=== PATIENT | male | born 1965 | race Caucasian/White ===

== ENCOUNTER 2020-03-31 20:36 | Emergency (ER) | payer MEDICAID ==
--- NOTE | 2020-03-31 21:15 | ER Document Report ---
ED Medical Screen (RME) - General Stated Complaint: GALLBLADDER ISSUES WORSENING Time Seen by Provider: 03/31/20 21:09 Primary Care Provider: ES PEDERSEN [Primary Care Provider] - Follow up as needed Mode of Arrival: Wheelchair Information source: Patient Notes: HPI; 54-year-old male history of [place] with cardiac arrest and gallbladder disease presents to the emergency room complaining of worsening right upper quadrant pain with nausea, vomiting, diarrhea, body aches, and midsternal chest pain for the past 3 days. States he was seen at [facility] in August for his gallbladder and had a stent put in for 3 weeks was never scheduled for surgery secondary to Covid. Describes a midsternal chest pain as a burning sensation. Has not taken anything for his symptoms. 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 PE: Alert and oriented x3. Lungs: Clear to auscultation without rales, rhonchi, wheezes. Heart: Regular rate rhythm without murmurs, rubs, gallops. I have greeted and performed a rapid initial assessment of this patient. A comprehensive ED assessment and evaluation of the patient, analysis of test results and completion of the medical decision making process will be conducted by additional ED providers. I have specifically instructed the patient or family members with the patient to immediately return to any nursing staff should anything change in the patient's condition or with their chief complaint. TRAVEL OUTSIDE OF THE [place] IN LAST 30 DAYS: No Doctor's Discharge - Discharge Referrals: ES PEDERSEN [Primary Care Provider] - Follow up as needed
[2020-03-31 22:52] LABS: ABSOLUTE EOSINOPHILS # (AUTO) 0.2 10^3/uL (0.0-0.6); ABSOLUTE LYMPHOCYTES (AUTO) 2.8 10^3/uL (0.5-4.7); ABSOLUTE MONOCYTES (AUTO) 1.1 10^3/uL (0.1-1.4); ABSOLUTE NEUT (AUTO) 6.7 10^3/uL (1.7-8.2); BASOPHILS % (AUTO) 0.3 % (0-2); EOSINOPHILS % (AUTO) 1.7 % (0-6); HEMATOCRIT 40.4 % (37.9-51.0); HEMOGLOBIN 14.3 g/dL (13.5-17.0); LYMPHOCYTES % (AUTO) 25.8 % (13-45); MEAN CORPUSCULAR HEMOGLOBIN 34.1 pg (27.0-33.4); MEAN CORPUSCULAR HGB CONC 35.4 g/dL (32.0-36.0); MEAN CORPUSCULAR VOLUME 96 fl (80-97); MONOCYTES % (AUTO) 10.4 % (3-13); PLATELET COUNT 280 10^3/uL (150-450); RED CELL DISTRIBUTION WIDTH 13.4 % (11.5-14.0); SEGMENTED NEUTROPHILS % (AUTO) 61.8 % (42-78); TOTAL CELLS COUNTED % (AUTO) 100 %; WHITE BLOOD COUNT 10.8 10^3/uL (4.0-10.5)
--- NOTE | 2020-03-31 22:55 | RADIOLOGY REPORT (SQ) ---
EXAM DESCRIPTION: XR CHEST 1 VIEW COMPLETED DATE/TME: 03/31/2020 22:08 CLINICAL HISTORY: 54 years, Male, chest pain EXAM DESCRIPTION: CHEST SINGLE VIEW CLINICAL HISTORY: chest pain COMPARISON: None. FINDINGS: Single view of the chest is submitted. Cardiac silhouette is normal. No focal parenchymal or pleural disease. There is no significant pulmonary vascular engorgement. IMPRESSION: No evidence of acute cardiopulmonary disease.
[2020-03-31 23:12] LABS: APPEARANCE,URINE CLEAR; BILIRUBIN,URINE NEGATIVE (NEGATIVE); COLOR,URINE YELLOW; GLUCOSE, URINE NEGATIVE (NEGATIVE); KETONES,URINE NEGATIVE (NEGATIVE); LEUKOCYTE ESTERASE,URINE NEGATIVE (NEGATIVE); NITRITE,URINE NEGATIVE (NEGATIVE); PROTEIN,URINE NEGATIVE (NEGATIVE); URINE SPECIFIC GRAVITY 1.024; UROBILINOGEN,URINE NEGATIVE mg/dL (<2.0)
[2020-03-31 23:13] LABS: ALBUMIN 4.6 g/dL (3.5-5.0); ALKALINE PHOSPHATASE 67 U/L (38-126); AMYLASE 68 U/L (30-110); ANION GAP 9 (5-19); ASPARTATE AMINO TRANSFERASE 27 U/L (17-59); BILIRUBIN,DIRECT 0.1 mg/dL (0.0-0.4); BILIRUBIN,TOTAL 0.4 mg/dL (0.2-1.3); BLOOD UREA NITROGEN 16 mg/dL (7-20); CALCIUM 9.7 mg/dL (8.4-10.2); CARBON DIOXIDE 27 mmol/L (22-30); CHLORIDE 100 mmol/L (98-107); GLUCOSE 103 mg/dL (75-110); POTASSIUM 4.5 mmol/L (3.6-5.0); TOTAL PROTEIN 7.6 g/dL (6.3-8.2)
--- NOTE | 2020-03-31 23:58 | ER Document Report ---
Entered by WARD HAYES SCRIBE 03/31/20 5610 Acting as scribe for:CASIE HARRIS DO ED General - General Chief Complaint: Chest Pain Stated Complaint: GALLBLADDER ISSUES WORSENING Time Seen by Provider: 03/31/20 21:09 Primary Care Provider: ES PEDERSEN [NO LOCAL MD] - Follow up as needed MICHAEL ZALDIVAR MD [ACTIVE PROVISIONAL STAFF] - 04/01/20 Mode of Arrival: Wheelchair Information source: Patient Notes: This 54 year old male patient presents to the emergency department today with x2-3 days of epigastric and RUQ pain that has worsened today. Patient reports history of acid reflux, gallbladder disease, and [place] with cardiac arrest months ago this year. Patient states he was told to stop smoking but still does. Denies any fever or chills. Patient reports nausea without vomiting, and even drinking water irritates his stomach. TRAVEL OUTSIDE OF THE [place] IN LAST 30 DAYS: No - Related Data Allergies/Adverse Reactions: tramadol [From Materia] Adverse Reaction (Verified 04/01/20 01:15) Past Medical History - General Information source: Patient - Social History Smoking Status: Current Every Day Smoker Cigarette use (# per day): Yes Family History: Reviewed & Not Pertinent - Past Medical History Cardiac Medical History: Reports: Hx Heart Attack GI Medical History: Reports: Other - gallbladder disease Review of Systems - Review of Systems Constitutional: See HPI. denies: Chills, Fever EENT: No symptoms reported Cardiovascular: No symptoms reported Respiratory: No symptoms reported Gastrointestinal: See HPI, Abdominal pain - Epigastric and RUQ, Nausea. denies: Vomiting Genitourinary: No symptoms reported Male Genitourinary: No symptoms reported Musculoskeletal: No symptoms reported Skin: No symptoms reported Hematologic/Lymphatic: No symptoms reported Neurological/Psychological: No symptoms reported Physical Exam - Vital signs Vitals: Temp Pulse Resp BP Pulse Ox 98.2 F 89 18 150/88 H 97 03/31/20 21:30 03/31/20 21:30 03/31/20 21:30 03/31/20 21:30 03/31/20 21:30 - General General appearance: Appears well, Alert - HEENT Head: Normocephalic, Atraumatic Eyes: Normal Pupils: PERRL - Respiratory Respiratory status: No respiratory distress Chest status: Nontender Breath sounds: Normal Chest palpation: Normal - Cardiovascular Rhythm: Regular Heart sounds: Normal auscultation Murmur: No - Abdominal Inspection: Normal Distension: No distension Bowel sounds: Normal Notes: Mild to moderate tenderness with palpation to the epigastric region. - Extremities General upper extremity: Normal inspection, Normal ROM General lower extremity: Normal inspection, Normal ROM. No: Edema - Neurological Neuro grossly intact: Yes Cognition: Normal Orientation: AAOx4 [place] Coma Scale Eye Opening: Spontaneous [place] Coma Scale Verbal: Oriented [place] Coma Scale Motor: Obeys Commands [place] Coma Scale Total: 15 Speech: Normal Motor strength normal: LUE, RUE, LLE, RLE Sensory: Normal - Psychological Associated symptoms: Normal affect, Normal mood - Skin Skin Temperature: Warm Skin Moisture: Dry Skin Color: Normal Course - Re-evaluation Re-evalutation: 04/01/20 01:55 MDM 54 year old with h/o dyspepsia, gerd and cardiac arrest along wtih gb disease reportedly. 3-4 days of epigastric and ruq pain and concerned over gb. Workup here is reassuring and he feels improved. Feel he is reasonable to follow up. Discussed this wiht him and he expressed understanding. - Vital Signs Vital signs: Temp Pulse Resp BP Pulse Ox 98.2 F 89 20 150/79 H 97 03/31/20 21:30 03/31/20 21:30 04/01/20 01:01 04/01/20 01:00 04/01/20 01:01 - Laboratory Results Result Diagrams: 03/31/20 22:31 03/31/20 22:31 Laboratory Results Interpreted: 03/31/20 03/31/20 22:31 22:31 WBC 10.8 H RBC 4.20 L MCH 34.1 H Sodium 136.3 L Critical Laboratory Results Reviewed: No Critical Results - Radiology Results Critical Radiology Results Reviewed: No Critical Results - EKG Interpretation by Me EKG shows normal: Sinus rhythm Rate: Normal Rhythm: NSR - NSR NL [place] [address] elevation or depression my interpretation. Discharge - Discharge Clinical Impression: Right flank pain, Dyspepsia, Tobacco abuse Condition: Stable Disposition: HOME, SELF-CARE Instructions: COVID-19 Guidance for Persons Under Investigation, Abdominal Pain ([facility]), Antinausea Medication ([facility]), Antispasmodics ([facility]), Clear Liquid Diet ([facility]) Additional Instructions: Clear liquids for 24 hours. Rest. Continue to work on stopping smoking. Return here for chest pain, shortness of breath or other problems or concerns. Take your medicine as directed. Take 2 baby aspirin - 162 mg - by mouth daily. Prescriptions: Sucralfate [Carafate Susp 1 Gm/10 Ml Udcup] 1 gm PO TID 10 Days #1 bottle Referrals: LOCAL,NO [NO LOCAL MD] - Follow up as needed MICHAEL ZALDIVAR MD [ACTIVE PROVISIONAL STAFF] - 04/01/20 I personally performed the services described in the documentation, reviewed and edited the documentation which was dictated to the scribe in my presence, and it accurately records my words and actions.
--- NOTE | 2020-04-01 00:27 | RADIOLOGY REPORT (SQ) ---
EXAM DESCRIPTION: U/S ABDOMEN LIMITED W/O DOP CLINICAL HISTORY: 54 years Male; ruq pain TECHNIQUE: Abdominal ultrasound was performed. COMPARISON: None. FINDINGS: Pancreas: A small segment of the head of the pancreas is visualized. The vast majority is not seen. Liver: The liver measures 15.5 cm in length. Echogenicity is normal. No biliary dilatation. Portal vein is patent with hepatopedal flow.. Gallbladder: Gallbladder is incompletely distended. This results in apparent thickening of the wall though it measured by the technologist at 1.4 mm. No stones. No pericholecystic fluid. Positive sonographic Blum's was present. Common bile duct: 2.2 mm. Right kidney: The kidney measures 11.5 x 4.6 x 6.2 cm. Echogenicity is normal. Blood flow is present.. No hydronephrosis. IMPRESSION: No definitive gallstones or pericholecystic fluid. There was a positive sonographic Blum's. No biliary dilatation.
[2020-04-01] MEDS ORDERED: FENTANYL CITRATE INJ/PF 100 MCG/2 ML AMPUL IV ONE (00:28)
[2020-04-01] MEDS ORDERED: PANTOPRAZOLE SODIUM 40 MG VIAL IV ONE (00:28)
[2020-04-01] MEDS ORDERED: METOCLOPRAMIDE HCL ORAL SOLN 10 MG/10 ML UDCUP PO ONE (01:54)
[2020-04-01] MEDS ORDERED: MAG HYDROX/AL HYDROX/SIMETH SUSP 30 ML UDCUP PO ONE (01:54)
[2020-04-01] MEDS ORDERED: LIDOCAINE 2% VISCOUS SOLN 15 ML UDCUP PO ONE (01:54)
[2020-04-01 02:23] VITALS: BP 127/94
--- NOTE | 2020-04-01 06:35 | EKG REPORT ---
SEVERITY:- BORDERLINE ECG - SINUS RHYTHM PROBABLE LEFT ATRIAL ABNORMALITY : Confirmed by: Angel Penny MD 01-Apr-2020 06:34:38
== END 2020-04-01 02:18 | disposition home or self-care (01) ==
LOC: ER 20:36
DX: R10.13 Epigastric pain (principal); R10.11 Right upper quadrant pain; R11.0 Nausea; R10.816 Epigastric abdominal tenderness; K21.9 Gastro-esophageal reflux disease without esophagitis; I25.2 Old myocardial infarction; F17.210 Nicotine dependence, cigarettes, uncomplicated; Z86.74 Personal history of sudden cardiac arrest; Z87.19 Personal history of other diseases of the digestive system; Z20.828 Contact with and (suspected) exposure to other viral communicable diseases
CPT/HCPCS: 93005; 99285; 96374; 96375; 36415; 82150; 83690; 85025; 87635; 80053; 81001; 84484; 71045; 76705; 93010; J3010; J3490 ×3; C9113; C9803